=== PATIENT | male | born 1980 | race Two or more races ===

== ENCOUNTER 2019-08-24 13:13 | Emergency (ER) | payer SELFPAY ==
--- NOTE | 2019-08-24 13:22 | EDM.PDOC ---
ED HPI GENERAL MEDICAL PROBLEM - General Chief Complaint: Abdominal Pain Stated Complaint: [facility] Time Seen by Provider: 08/24/19 13:19 - History of Present Illness INITIAL COMMENTS - FREE TEXT/NARRATIVE: Patient developed some upper abdominal discomfort this morning. This discomfort started this morning he describes it as almost more of a nausea but he also says it was the worst pain is ever experienced. Patient does not have any prior history of any medical problems no history of coronary artery disease. He is not on any routine medications. The patient drank perhaps a little too much on Sunday night but nothing yesterday. Pain is mostly upper abdominal at this point. The patient has reflux intermittently a little less than once week but this does wake him at night. Epigastric Pain Score (Numeric/FACES): 10 - Related Data Allergies Allergy/AdvReac Type Severity Reaction Status Date / Time No Known Allergies Allergy Verified 08/24/19 13:24 Home Meds: Home Meds . [No Known Home Meds] 08/24/19 [History] ED ROS GENERAL - Review of Systems Review Of Systems: See Below Constitutional: Reports: No Symptoms HEENT: Reports: No Symptoms Respiratory: Reports: No Symptoms Cardiovascular: Reports: No Symptoms GI/Abdominal: Reports: Abdominal Pain, Nausea. Denies: Constipation, Diarrhea : Reports: No Symptoms Musculoskeletal: Reports: No Symptoms Skin: Reports: No Symptoms Neurological: Reports: No Symptoms ED EXAM, GENERAL - Physical Exam Exam: See Below Exam Limited By: No Limitations General Appearance: Alert, No Apparent Distress, Other (Patient did receive Dilaudid and Zofran in route by EMS his nausea is much better his pain is improving) Head: Atraumatic, Normocephalic Neck: Normal Inspection, Supple, Non-Tender, Full Range of Motion. No: Lymphadenopathy (L), Lymphadenopathy (R) Respiratory/Chest: No Respiratory Distress, Lungs Clear, Normal Breath Sounds Cardiovascular: Regular Rate, Rhythm, No Edema, Systolic Murmur (2/6 systolic murmur heard best in the right upper sternal border he has no prior history of a murmur that he is aware of.) GI/Abdominal: Normal Bowel Sounds, Soft, Non-Tender, Other (His abdominal exam is unremarkable at this point). No: Guarding, Rigid, Rebound Back Exam: Normal Inspection. No: CVA Tenderness (L), CVA Tenderness (R) Extremities: Normal Inspection, No Pedal Edema Neurological: Alert, Oriented, Normal Cognition Course - Vital Signs Last Recorded V/S: Last Vital Signs Temp 36.6 C 08/24/19 13:18 Pulse 78 08/24/19 13:18 Resp 18 08/24/19 13:18 BP 171/96 H 08/24/19 13:18 Pulse Ox 100 08/24/19 13:18 - Orders/Labs/Meds Orders: Active Orders 24 hr Category Date Time Status UA RFX RORY AND CULT IF INDIC [URIN] Stat Lab 08/24/19 13:29 Ordered Labs: Laboratory Tests 08/24/19 08/24/19 Range/Units 13:37 13:37 WBC 7.76 (4.23-9.07) K/mm3 RBC 4.63 (4.63-6.08) M/mm3 Hgb 14.7 (13.7-17.5) gm/dl Hct 42.5 (40.1-51.0) % MCV 91.8 (79.0-92.2) fl MCH 31.7 (25.7-32.2) pg MCHC 34.6 (32.2-35.5) g/dl RDW Std Deviation 41.9 (35.1-43.9) fL Plt Count 230 (163-337) K/mm3 MPV 9.3 L (9.4-12.3) fl Neut % (Auto) 79.1 H (34.0-67.9) % Lymph % (Auto) 14.8 L (21.8-53.1) % [place] % (Auto) 5.3 (5.3-12.2) % Eos % (Auto) 0.3 L (0.8-7.0) Baso % (Auto) 0.1 (0.1-1.2) % Neut # (Auto) 6.14 H (1.78-5.38) K/mm3 Lymph # (Auto) 1.15 L (1.32-3.57) K/mm3 [place] # (Auto) 0.41 (0.30-0.82) K/mm3 Eos # (Auto) 0.02 L (0.04-0.54) K/mm3 Baso # (Auto) 0.01 (0.01-0.08) K/mm3 Sodium 143 (136-145) mEq/L Potassium 3.9 (3.5-5.1) mEq/L Chloride 105 (98-107) mEq/L Carbon Dioxide 27 (21-32) mEq/L Anion Gap 14.9 (5-15) BUN 13 (7-18) mg/dL Creatinine 1.1 (0.7-1.3) mg/dL Est Cr Clr Drug Dosing 87.23 mL/min Estimated GFR (MDRD) > 60 (>60) mL/min BUN/Creatinine Ratio 11.8 L (14-18) Glucose 138 H (74-106) mg/dL Calcium 9.1 (8.5-10.1) mg/dL Total Bilirubin 0.6 (0.2-1.0) mg/dL AST 20 (15-37) U/L ALT 39 (16-63) U/L Alkaline Phosphatase 68 (46-116) U/L Troponin I < 0.017 (0.00-0.056) ng/mL Total Protein 7.3 (6.4-8.2) g/dl Albumin 4.1 (3.4-5.0) g/dl Globulin 3.2 gm/dL Albumin/Globulin Ratio 1.3 (1-2) Lipase 292 (73-393) U/L - Re-Assessments/Exams Free Text/Narrative Re-Assessment/Exam: 08/24/19 15:13 Work-up is unrevealing at this point I offered to check a second troponin but the patient would like to get going. We will start him on famotidine. Departure - Departure Time of Disposition: 15:14 Disposition: Refer to Observation Clinical Impression: Upper abdominal pain - Discharge Information Forms: ED Department Discharge Additional Instructions: Turn to the emergency room with any questions problems or worsening symptoms. Follow-up with a local healthcare provider within the next week. 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 This is [id number]. Sepsis Event Note - Focused Exam Vital Signs: Vital Signs Temp Pulse Resp BP Pulse Ox 08/24/19 13:18 36.6 C 78 18 171/96 H 100 Date Exam was Performed: 08/24/19 Time Exam was Performed: 15:12 - My Orders Last 24 Hours: My Active Orders 08/24/19 13:29 UA RFX RORY AND CULT IF INDIC [URIN] Stat - Assessment/Plan Last 24 Hours: My Active Orders 08/24/19 13:29 UA RFX RORY AND CULT IF INDIC [URIN] Stat
--- NOTE | 2019-08-24 14:02 | CR ---
Chest: Portable view of the chest was obtained. Comparison: No prior chest imaging. Heart size is slightly prominent but felt to be within normal limits for portable technique. Tortuous thoracic aorta is seen. Lungs are clear with no acute parenchymal change. Bony structures are grossly intact. Impression: 1. Nothing acute is appreciated on portable chest x-ray. Diagnostic code #1 This report was dictated in [place] Standard Time
== END 2019-08-24 15:25 | disposition home or self-care (01) ==
LOC: JD.ED 13:13
DX: R10.13 Epigastric pain (principal)
CPT/HCPCS: 36415; 71045; 71045-26; 80053; 83690; 84484; 85025; 99282; 99285-25